=== PATIENT | male | born 1980 | race Caucasian/White ===

== ENCOUNTER 2018-08-09 22:40 | Emergency (ER) | payer BC, SELFPAY ==
--- NOTE | 2018-08-09 23:43 | ER ---
Nurse's Notes [facility] Name: Adela Iniguez Age: 37 yrs Sex: Male : 1980 Arrival Date: 08/09/2018 Time: 22:48 Bed 13 Private MD: Diagnosis: Altered mental status, unspecified;Delusional disorders-unknown Presentation: 08/09 23:16 Presenting complaint: states: we have been getting terrorized since February, we think jb4 someone may have been trying to drug us. We went to our house yesterday and there was a weird ammonia type smell in the house. When he went to bed he received a phone call and then got a shooting ear pain, and when he woke up he thought that today was 07/01/18 and that he was given a trigger word and that when he hears it he is suppose to do something. Transition of care: patient was not received from another setting of care. Onset of symptoms was August 09, 2018. Risk Assessment: Do you want to hurt yourself or someone else? Patient reports no desire to harm self or others. Initial Sepsis Screen: Does the patient meet any 2 criteria? No. Patient's initial sepsis screen is negative. Does the patient have a suspected source of infection? No. Patient's initial sepsis screen is negative. Care prior to arrival: None. 23:16 Method Of Arrival: Ambulatory jb4 23:16 Acuity: MURIEL 3 jb4 Triage Assessment: 23:20 General: Appears in no apparent distress. comfortable, Behavior is cooperative, jb4 anxious. Pain: Complains of pain in left ear. EENT: No signs and/or symptoms were reported regarding the EENT system. Neuro: Level of Consciousness is awake, alert, obeys commands, Oriented to person, place, time, situation. Cardiovascular: Patient's skin is warm and dry. Respiratory: Airway is patent Respiratory effort is even, unlabored, Respiratory pattern is regular, symmetrical. GI: No signs and/or symptoms were reported involving the gastrointestinal system. : No signs and/or symptoms were reported regarding the genitourinary system. Derm: Skin is intact, Skin is pink, warm \T\ dry. Musculoskeletal: Circulation, motion, and sensation intact. Historical: - Allergies: 23:20 PENICILLINS; jb4 23:20 Codeine; jb4 - Home Meds: 23:20 None [Active]; jb4 - PMHx: 23:20 None; jb4 - PSHx: 23:20 None; jb4 - Immunization history:: Adult Immunizations up to date, Flu vaccine is not up to date. - Social history:: Smoking status: Patient uses tobacco products, smokes one pack cigarettes per day. - Ebola Screening: : No symptoms or risks identified at this time. - Family history:: not pertinent. Screenin:30 Abuse screen: Denies threats or abuse. Nutritional screening: No deficits noted. jb4 Tuberculosis screening: No symptoms or risk factors identified. Fall Risk None identified. Assessment: 23:30 General: see triage assessment. jb4 23:48 Reassessment: Talked to pt, pt refuses all labs and wants to be treated else where. jb4 Provider spoke with pt. Pt still refusing treatment. Wants to be treated else where. Vital Signs: 23:20 BP 135 / 92; Pulse 84; Resp 18; Temp 98.3; Pulse Ox 100% on R/A; Weight 90.72 kg (R); jb4 Height 6 ft. 2 in. (187.96 cm) (R); 23:20 Body Mass Index 25.68 (90.72 kg, 187.96 cm) jb4 ED Course: 22:48 Patient arrived in ED. 23:04 Donis Langston, RN is Primary Nurse. jb4 23:19 Triage completed. jb4 23:20 Arm band placed on right wrist. jb4 23:30 Patient has correct armband on for positive identification. Bed in low position. Call jb4 light in reach. Side rails up X 1. Pulse ox on. NIBP on. 23:30 No provider procedures requiring assistance completed. Patient did not have IV access jb4 during this emergency room visit. 23:32 Brody March MD is Attending Physician. ammy Administered Medications: 23:50 Not Given (Patient Refused): NS 0.9% 1000 ml IV at 1 bolus Per protocol; 1000 mL bolus jb4 23:50 Not Given (Patient Refused): Thiamine 100 mg IV at bolus once jb4 Outcome: 23:30 AMA AMA form signed jb4 23:30 Condition: stable 23:51 Patient left the ED. jb4 Signatures: Brody March MD MD cha Salyer, Edna es Bryson, Donis, RN RN jb4 Corrections: (The following items were deleted from the chart) 23:24 23:16 Presenting complaint: states: we have been getting terrorized since February, we jb4 thing someone may have been trying to drug us. We went to our house yesterday and there was a weird ammonia type smell in the house. When he went to bed he received a phone call and then got a shooting ear pain, and when he woke up he thought that today was 07/01/18 and that he was given a trigger word and that when he hears it he is suppose to do something. jb4
--- NOTE | 2018-08-09 23:44 | EDPHYS ---
Physician Documentation [facility] Name: Adela Iniguez Age: 37 yrs Sex: Male : 1980 Arrival Date: 08/09/2018 Time: 22:48 Bed 13 Private MD: ED Physician Brody March HPI: 08/09 23:38 This 37 yrs old Male presents to ER via Ambulatory with complaints of Memory ammy Loss. 23:38 The patient's problem is reported as altered mental status, disoriented to time, ammy confused. Onset: The symptoms/episode began/occurred just prior to arrival, today. Duration: The episode is continuous. The symptoms are alleviated by nothing. Associated signs and symptoms: Pertinent positives: confusion, corroborates story, no suicidal , not homicidal. Severity of symptoms: At their worst the symptoms were mild moderate in the emergency department the symptoms are unchanged. The patient has not experienced similar symptoms in the past. Historical: - Allergies: 23:20 PENICILLINS; jb4 23:20 Codeine; jb4 - Home Meds: 23:20 None [Active]; jb4 - PMHx: 23:20 None; jb4 - PSHx: 23:20 None; jb4 - Immunization history:: Adult Immunizations up to date, Flu vaccine is not up to date. - Social history:: Smoking status: Patient uses tobacco products, smokes one pack cigarettes per day. - Ebola Screening: : No symptoms or risks identified at this time. - Family history:: not pertinent. ROS: 23:38 Constitutional: Negative for fever, chills, and weight loss, Eyes: Negative for injury, ammy pain, redness, and discharge, ENT: Negative for injury, pain, and discharge, Neck: Negative for injury, pain, and swelling, Cardiovascular: Negative for chest pain, palpitations, and edema, Respiratory: Negative for shortness of breath, cough, wheezing, and pleuritic chest pain, Abdomen/GI: Negative for abdominal pain, nausea, vomiting, diarrhea, and constipation, Back: Negative for injury and pain, : Negative for injury, bleeding, discharge, and swelling, MS/Extremity: Negative for injury and deformity, Skin: Negative for injury, rash, and discoloration, Psych: Negative for depression, anxiety, suicide ideation, homicidal ideation, and hallucinations, Allergy/Immunology: Negative for hives, rash, and allergies, Endocrine: Negative for neck swelling, polydipsia, polyuria, polyphagia, and marked weight changes, Hematologic/Lymphatic: Negative for swollen nodes, abnormal bleeding, and unusual bruising. 23:38 Neuro: Positive for altered mental status, delusional, alert and oriented x 3, not suicidal and not homicidal. Exam: 23:38 Constitutional: This is a well developed, well nourished patient who is awake, alert, ammy and in no acute distress. Head/Face: Normocephalic, atraumatic. Eyes: Pupils equal round and reactive to light, extra-ocular motions intact. Lids and lashes normal. Conjunctiva and sclera are non-icteric and not injected. Cornea within normal limits. Periorbital areas with no swelling, redness, or edema. ENT: Nares patent. No nasal discharge, no septal abnormalities noted. Tympanic membranes are normal and external auditory canals are clear. Oropharynx with no redness, swelling, or masses, exudates, or evidence of obstruction, uvula midline. Mucous membranes moist. Neck: Trachea midline, no thyromegaly or masses palpated, and no cervical lymphadenopathy. Supple, full range of motion without nuchal rigidity, or vertebral point tenderness. No Meningismus. Chest/axilla: Normal chest wall appearance and motion. Nontender with no deformity. No lesions are appreciated. Cardiovascular: Regular rate and rhythm with a normal S1 and S2. No gallops, murmurs, or rubs. Normal PMI, no JVD. No pulse deficits. Respiratory: Lungs have equal breath sounds bilaterally, clear to auscultation and percussion. No rales, rhonchi or wheezes noted. No increased work of breathing, no retractions or nasal flaring. Abdomen/GI: Soft, non-tender, with normal bowel sounds. No distension or tympany. No guarding or rebound. No evidence of tenderness throughout. Back: No spinal tenderness. No costovertebral tenderness. Full range of motion. Male : Normal genitalia with no discharge or lesions. Skin: Warm, dry with normal turgor. Normal color with no rashes, no lesions, and no evidence of cellulitis. MS/ Extremity: Pulses equal, no cyanosis. Neurovascular intact. Full, normal range of motion. 23:38 Neuro: Orientation: appropriate for stated age, no acute changes, Mentation: appropriate for stated age, responsive to voice confused, Memory: unable to test, Cranial nerves: is grossly normal based on the patient's age, no acute changes, Cerebellar function: is grossly normal based on the patient's age, no acute changes, Motor: moves all fours, Sensation: no obvious gross deficits, appropriate no acute changes, Gait: is steady, appropriate for age, Deep tendon reflexes are 2+ (normal) in the bilateral brachioradialis, bicep, tricep and patellar and Achilles tendons, seizure activity, is not displayed by the patient. 08/10 07:08 Radiologist reports: see the report [facility] Vital Signs: 08/09 23:20 BP 135 / 92; Pulse 84; Resp 18; Temp 98.3; Pulse Ox 100% on R/A; Weight 90.72 kg (R); jb4 Height 6 ft. 2 in. (187.96 cm) (R); 23:20 Body Mass Index 25.68 (90.72 kg, 187.96 cm) jb4 MDM: 23:32 Patient medically screened. [facility] 23:43 Data reviewed: vital signs, nurses notes. [facility] Administered Medications: 23:50 Not Given (Patient Refused): NS 0.9% 1000 ml IV at 1 bolus Per protocol; 1000 mL bolus jb4 23:50 Not Given (Patient Refused): Thiamine 100 mg IV at bolus once jb4 Disposition: 08/09/18 23:43 Patient has left against medical advice. Impression: Altered mental status, unspecified, Delusional disorders - unknown. - Patients states they are going to Home. - Condition is Stable. - Discharge Instructions: Confusion, Paranoia. Follow up: Private Physician; When: Upon discharge from the Emergency Department; Reason: Recheck today's complaints, Continuance of care, Re-evaluation by your physician. - Problem is new. - Symptoms have improved. Signatures: Dispatcher [employer] EDBrody Coreas MD MD cha Chretien, Felicia, RN RN fc Bryson, James, RN RN jb4 Corrections: (The following items were deleted from the chart) 23:50 23:16 EKG - Nurse/Tech ordered. [facility] 23:50 23:16 Urine Dipstick-Ancillary ordered. [facility] 23: 23:16 IV Saline Lock ordered. [facility] 23:51 23:16 Labs collected and sent ordered. jb4 23:51 23:43 08/09/2018 23:43 Patients has left against medical advice. Impression: Altered jb4 mental status, unspecified; Delusional disorders - unknown. Patient states they are going to Home. Condition is Stable. Follow up: Private Physician; When: Upon discharge from the Emergency Department; Reason: Recheck today's complaints, Continuance of care, Re-evaluation by your physician. Problem is new. Symptoms have improved. ammy
== END 2018-08-09 23:51 | disposition left against medical advice (07) ==
LOC: ER 22:40
DX: F22 Delusional disorders (principal); R41.82 Altered mental status, unspecified; F17.210 Nicotine dependence, cigarettes, uncomplicated
CPT/HCPCS: 99282